=== PATIENT | female | born 1995 | race African-American/Black ===

== ENCOUNTER 2022-08-02 12:17 | Emergency (ER) | payer SELFPAY ==
[~2022-08-02] VITALS: Ht 175.3 cm; Wt 82.0 kg
[2022-08-02 12:50] VITALS: BP 125/73
== END 2022-08-02 12:41 | disposition home or self-care (01) ==
LOC: ER 12:17
DX: R21 Rash and other nonspecific skin eruption (principal); Z88.0 Allergy status to penicillin
CPT/HCPCS: 99281

== ENCOUNTER 2022-08-07 00:22 | Emergency (ER) | payer SELFPAY ==
[~2022-08-07] VITALS: Ht 175.3 cm; Wt 87.0 kg
[2022-08-07 00:40] VITALS: BP 130/90
== END 2022-08-07 05:00 | disposition left against medical advice (07) ==
LOC: ER 00:22
DX: Z53.21 Procedure and treatment not carried out due to patient leaving prior to being seen by health care provider (principal)